=== PATIENT | male | born 1965 | race Asian ===

== ENCOUNTER 2022-05-25 08:31 | Emergency (ER) | payer MEDICAID ==
[~2022-05-25] VITALS: Ht 180.3 cm; Wt 77.6 kg
[2022-05-25 08:40] VITALS: BP_SYST 159
[2022-05-25] MEDS ORDERED: BACITRACIN 1 GM OINT TP ONE (09:00)
[2022-05-25] MEDS ORDERED: DIPHTH,PERTUSS(ACELL),TET VAC 0.5 ML VIAL (Tdap) I.M. ONE (09:00)
--- NOTE | 2022-05-25 09:12 | NUR ---
PT COMES IN FOR WELSH COVERY FOR PUNCTURE WOUND TO RT PALM (3) NO ACTIVE BLEEDING NOTED. PT STATES TO DR BELLO THAT HE WAS TRYING TO JUMP OVER FENCE. PT IN NAD. RESP EVEN AND UNLABORED, ON RA @99%
--- NOTE | 2022-05-25 09:26 | NUR ---
MEDICATED ORDERED, WILL CONT TO MONITOR.
--- NOTE | 2022-05-25 09:54 | NUR ---
Patient given written and verbal discharge instructions and verbalizes understanding. ER MD discussed with patient the results and treatment provided. Patient in stable condition. ID arm band removed.
[2022-05-25 10:14] VITALS: BP_SYST 142
== END 2022-05-25 09:54 | disposition home or self-care (01) ==
LOC: SED 08:31
DX: S61.431A Puncture wound without foreign body of right hand, initial encounter (principal); Z79.899 Other long term (current) drug therapy; X58.XXXA Exposure to other specified factors, initial encounter; Y93.89 Activity, other specified; Y92.89 Other specified places as the place of occurrence of the external cause; Y99.8 Other external cause status
CPT/HCPCS: 90715; 99283